=== PATIENT | male | born 1950 | race Caucasian/White ===

== ENCOUNTER 2018-06-16 05:54 | Inpatient (IN) | payer MEDICARE, SELFPAY ==
[2018-06-16 07:41] LABS: #Lymphocytes 0.5 thou/uL (1.20-3.40); #Monocytes 0.5 thou/uL (0.11-0.59); #Neutrophils 15.2 thou/uL (1.40-6.50); %Basophils 0.1 % (0.0-1.0); %Eosinophils 0.1 % (0.0-10.0); %Lymphocytes 2.8 % (21.0-51.0); %Monocytes 3.1 % (0.0-10.0); %Neutrophils 93.9 % (42.0-75.0); Hemoglobin 14.3 g/dL (14.0-18.0); Mean Corpuscular HGB CONC 35.2 g/dL (32.0-36.0); Mean Corpuscular Hemoglobin 31.5 pg (27.0-31.0); Mean Corpuscular Volume 89.6 fL (78.0-98.0); Mean Platelet Volume 7.5 fL (7.4-10.4); Platelet Count 257 thou/uL (130-400); RBC Distribution Width 11.4 % (11.5-14.5); Red Blood Cell (RBC) Count 4.54 mill/uL (4.70-6.10); White Blood Cell (WBC) Count 16.2 thou/uL (4.8-10.8)
[2018-06-16 08:07] LABS: ALT (SGPT) 85 U/L (8-55); AST (SGOT) 149 U/L (5-34); Albumin 4.2 g/dL (3.4-4.8); Alkaline Phosphatase 225 U/L (40-150); Anion Gap 18 mmol/L (10-20); BUN (Urea Nitrogen) 33 mg/dL (8.4-25.7); Bilirubin, Total 3.4 mg/dL (0.2-1.2); Calc. Creatinine Clearance 0 mL/min (70-130); Calcium 9.6 mg/dL (7.8-10.44); Carbon Dioxide 22 mmol/L (23-31); Chloride 94 mmol/L (98-107); Estimated GFR-MDRD 34; Globulin 2.9 g/dL (2.4-3.5); Glucose 447 mg/dL (80-115); Lipase 166 U/L (8-78); Potassium 4.3 mmol/L (3.5-5.1); Protein, Total 7.1 g/dL (5.8-8.1); Sodium 130 mmol/L (136-145)
--- NOTE | 2018-06-16 08:31 | RAD ---
PORTABLE CHEST: Date: 06/16/18 HISTORY: Epigastric pain, elevated liver enzymes. FINDINGS: Heart size appears borderline to slightly enlarged. There is some linear and interstitial change in t he bases consistent with atelectasis or scar. There is elevation of the right hemidiaphragm. IMPRESSION: Linear atelectasis or scar in the lung bases with minimal cardiomegaly. POS: [facility]
[2018-06-16] MEDS ORDERED: Acetaminophen 500 MG TAB ONE (09:12)
[2018-06-16] MEDS ORDERED: Piperacillin/Tazobactam 4.5 GM VIAL ONE (09:20)
[2018-06-16 09:46] LABS: Bilirubin Negative (Negative); Blood, Urine Negative (Negative); Clarity CLEAR (Clear); Glucose, Urine (Dipstick) >=1000 mg/dL (Negative); Leukocyte Negative (Negative); Nitrite Negative (Negative); Protein, Urine (Dipstick) Negative (Neg-Trace); Specific Gravity, Urine 1.026 (1.002-1.036)
[2018-06-16] MEDS ORDERED: Iothalamate Meglumine 60% 50 ML VIAL FS ONE (09:53)
[2018-06-16 10:02] LABS: PTT 23.9 SEC (22.9-36.1); Prothrombin Time 13.4 SEC (12.0-14.7)
[2018-06-16] MEDS ORDERED: Indomethacin 50 MG SUPP ONE (10:06)
--- NOTE | 2018-06-16 10:13 | CON ---
DATE OF CONSULTATION: CHIEF COMPLAINT: Epigastric abdominal pain. HISTORY: This is a 68-year-old male with a 3-4 day history of mid epigastric pain associated with nausea, no vomiting. It is progressive. He has been having low-grade fever. While in the emergency room, he spiked a temperature to 105 and became much more lethargic and became more tachycardic. PAST MEDICAL HISTORY: Significant for hypertension and diabetes. PAST SURGERIES: He has had a laminectomy. MEDICATIONS: Metformin, lisinopril, and hydrochlorothiazide. SOCIAL HISTORY: He is . No tobacco or alcohol. PHYSICAL EXAMINATION: VITAL SIGNS: Temperature 105, pulse 136, blood pressure 130/60. GENERAL: He is very lethargic, difficult to answer questions, somewhat diaphoretic. He is obese. HEENT: He has some possible trace jaundice. LUNGS: Clear. HEART: Regular rate and rhythm, but tachy. ABDOMEN: Obese, soft, tender in the epigastrium. No peritoneal signs. EXTREMITIES: Unremarkable. LABORATORY DATA: His white count is 16.2, H and H of 14 and 40, platelet count 257. Electrolytes, his creatinine is elevated at 1.96, his glucose 450, his sodium 130, his CO2 of 22, T bilirubin is 3.4, AST 149, ALT of 85, alkaline phosphatase 225, lipase 166. He had an ultrasound showing cholelithiasis. ASSESSMENT: Worrisome for acute cholangitis. PLAN: IV antibiotics, IV fluids. GI consultation for possible ERCP. When more stable, we can consider lap mj. Job ID: [id number]
[2018-06-16] MEDS ORDERED: PHENYLEPHRINE-NS 100 MCG/ML 10 ML SYRINGE ONE ×2 (10:25→13:42)
[2018-06-16] MEDS ORDERED: Fentanyl 100 MCG/2 ML VIAL ONE (10:25)
--- NOTE | 2018-06-16 10:40 | ULT ---
RIGHT UPPER QUADRANT ULTRASOUND: Date: 06/16/18 INDICATION: Elevated LFTs and epigastric abdominal pain. FINDINGS: Overlying bowel gas limits exam. There is diffuse increased echogenicity of the liver consistent with fatty infiltration. There is gallbladder sludge and stones present. No sonographic Milligan's sign rep orted. No pericholecystic fluid is evident. Common bile duct measures 4.1 mm. Pancreas is obscured. T he right kidney measures 10.7 cm in length without evidence of hydronephrosis. Incidental note is mad e of a 2.0 cm left hepatic lobe cyst. IMPRESSION: 1. Fatty liver and left hepatic lobe cyst. 2. Gallbladder sludge with stones without definite sonographic evidence of acute cholecystitis. POS: [facility]
--- NOTE | 2018-06-16 11:20 | CT ---
CT ABDOMEN AND PELVIS PERFORMED WITH IV CONTRAST ENHANCEMENT: Date: 06/16/18 HISTORY: Abdominal pain and fever. Evaluate for cholangitis. FINDINGS: The lung bases show bibasilar atelectatic change. Liver shows some fatty change. Hypodensities within the left lobe are small, but statistically most l ikely cysts. The pancreas region appears unremarkable. Small gallstones are noted. No pericholecystic inflammatory change. Gallbladder is mildly distended. No ductal dilatation. Right and left adrenal glands, and right and left kidneys are normal in size. There is no significant periaortic or mesenteric lymphadenopathy. There are very minimal diverticular changes of the colon, more pronounced in the descending and sigmoid colon region. CT of pelvis was performed with contrast enhancement. No adenopathy, mass, or free fluid. The appendi x is normal. Review of osseous structures show arthritic changes of the spine. IMPRESSION: 1. Hypodensities within the liver, statistically most likely a cyst. 2. Small gallstones. 3. Colonic diverticulosis. POS: [facility]
[2018-06-16] MEDS ORDERED: Meperidine HCl/PF 25 MG/ML VIAL SLOW IVP PRN (11:37)
[2018-06-16] MEDS ORDERED: Promethazine HCl 25 MG/ML VIAL SLOW IVP PRN (11:37)
[2018-06-16] MEDS ORDERED: Promethazine HCl 25 MG/ML VIAL IM PRN (11:37)
[2018-06-16] MEDS ORDERED: HYDROmorphone 2 MG/ML VIAL SLOW IVP PRN (11:37)
--- NOTE | 2018-06-16 11:37 | HP ---
PRIMARY CARE PHYSICIAN: Dr. Cruz in [place]. REASON FOR ADMISSION: Acute cholangitis. HISTORY OF PRESENT ILLNESS: A 68-year-old male, who has underlying history of hypertension and who was diagnosed with diabetes 3 days ago and started on metformin, who came to emergency room for evaluation of epigastric abdominal pain. Initially, he went to [facility] for right upper quadrant pain, which was started yesterday during nighttime. The patient was taken to local emergency room. He was having nausea and vomiting. On , he had scant diarrhea. At [facility], the patient was found with abnormal LFT. He was having 9/10 in intensity, predominantly in right upper quadrant and he was also found with jaundice on routine blood test. The patient was also having chills at home. He was having nausea and anorexia. This patient was transferred from [place] to our hospital. He had a CT abdomen and pelvis as well as ultrasound of gallbladder, and findings were suspicious for cholecystitis versus cholangitis. [facility] already saw this patient and they are planning to do ERCP. This patient already has received 2 L of IV fluid , and the patient also received Zosyn. The patient denies any chest pain, palpitation, shortness of breath. He denies any orthopnea, PND, or leg swelling. This patient was relatively hypotensive and tachycardic in the emergency room. He was having sepsis. The patient's family member is present at bedside. The patient denies any melena or hematochezia. No hematemesis. He denies any similar problem in the past. The patient is also complaining that right upper quadrant pain is also radiating to back. He denies any abdominal distention. REVIEW OF SYSTEMS: CONSTITUTIONAL: Negative for weight loss or gain, ability to conduct usual activities. SKIN: Negative for rash, itching. EYES: Negative for double vision, pain. ENT/MOUTH: Negative for nose bleeding, neck stiffness, pain, tenderness. CARDIOVASCULAR: Negative for palpitations, dyspnea on exertion, orthopnea. RESPIRATORY: Negative for shortness of breath, wheezing, cough, hemoptysis, fever or night sweats. GASTROINTESTINAL: Negative for poor appetite, abdominal pain, heartburn, nausea , vomiting, constipation, or diarrhea. GENITOURINARY: Negative for urgency, frequency, dysuria, nocturia. MUSCULOSKELETAL: Negative for pain, swelling. NEUROLOGIC/PSYCHIATRIC: Negative for anxiety, depression. ALLERGY/IMMUNOLOGIC: Negative for skin rash, bleeding tendency. Please see my HPI for pertinent positive and negative. All other review of systems reviewed and negative, except as mentioned in HPI. PAST MEDICAL HISTORY: New diagnosis of diabetes mellitus type 2 few days ago, hypertension, obesity. PAST SURGICAL HISTORY: Laminectomy. PAST PSYCHIATRIC HISTORY: Reviewed and negative. ALLERGIES: THE PATIENT IS NOT TOLERATING NORCO WELL. CURRENT HOME MEDICATIONS: Metformin 500 mg twice daily, lisinopril with hydrochlorothiazide 10/12.5 one tablet daily. SOCIAL HISTORY: Patient is , no history of tobacco, alcohol or drug abuse. FAMILY HISTORY: No family history of coronary artery disease, stroke, or cancer. EMERGENCY ROOM COURSE: The patient has received IV fluid, Zosyn, Ofirmev. ADDITIONAL INFORMATION: The patient was initially afebrile at [facility], but subsequently he spiked fever in our emergency room with a temperature 105.5 , and he became tachycardic and hypotensive. PHYSICAL EXAMINATION: VITAL SIGNS: T-maximum 105.5 rectally, pulse 137, blood pressure 96/52, saturation 95% on room air, weight 99.8 kg. GENERAL: The patient is currently alert, awake. No obvious acute distress. HEENT: Head; normocephalic, atraumatic. Eyes; pupils round and reactive to light. Extraocular muscles intact. ENT; oropharynx within normal limit. Moist mucous membranes. No oral lesion. No pharyngeal erythema. No exudate. NECK: Supple. No JVD. No thyromegaly. No carotid bruit. No jugular venous distention. LUNGS: Clear to auscultation without any rhonchi or rales. Air entry reduced at bases. CARDIAC: S1, S2 regular. Tachycardia. No murmur. No gallop. No rub. ABDOMEN: The patient does have right upper quadrant tenderness. No suprapubic tenderness. Bowel sounds present. No organomegaly. No mass. No distention. BACK: Unremarkable. No CVA tenderness. EXTREMITIES: Upper extremities; passive movement of all joints are normal. Lower extremity, no edema. Good distal pulsation. SKIN: No skin rash. HEMATOLOGICAL: No lymphadenopathy. NEUROLOGIC: Nonfocal examination. SIGNIFICANT LABORATORY DATA: EKG showing sinus tachycardia, initially an incomplete right bundle-branch block. Subsequently, repeat EKG is showing incomplete right bundle-branch block, left anterior fascicular block. CBC; WBC 16.2, hemoglobin 14.3, platelets 257, with left shift. INR 1.0. BMP; sodium 130, potassium 4.3, chloride 94, carbon dioxide 22, anion gap 18, BUN 33, creatinine 1.96, glucose 447, calcium 9.6, lactic acid 3.9. LFT; bilirubin 3.4, AST 149, ALT 85, alkaline phosphatase 225, albumin 4.2, lipase 166. Troponin 0.010. Urinalysis, glucosuria, ketonuria. Influenza A and B negative. Ultrasound showing fatty liver, left hepatic cyst, gallbladder sludge. Chest x- ray showing atelectasis. CT abdomen and pelvis done, but official report is pending by the time of dictation. ASSESSMENT AND PLAN: 1. Acute cholangitis. This patient has right upper quadrant abdominal pain, high-grade fever, chills, along with the jaundice on lab testing with abnormal LFT consistent with acute cholangitis. [facility] has been consulted, and they already evaluated this patient, and the patient is planned for emergent ERCP. The patient already received broad-spectrum antibiotic therapy with Zosyn and he has received IV fluid. We will monitor his vitals and hemodynamics and labs. General Surgery will be consulted as well. This patient has gallbladder sludge and that he may need a near future cholecystectomy. The patient's pain will be controlled with the pain medication with morphine p.r.n. basis after procedure. 2. Severe sepsis with hypotension and acute organ dysfunction. This patient has acute kidney failure, abnormal LFT, lactic acidosis, hypotension. Source of infection is cholecystitis versus cholangitis. The patient is on broad-spectrum antibiotic therapy with Zosyn, and we will also add levofloxacin. We will give him enough fluid as well. We will monitor closely either on telemetry floor or IMCU depending upon his next few hours hemodynamic stability. 3. Acute kidney failure. The patient will be given IV fluid and will repeat BMP tomorrow. We will avoid nephrotoxin agent. 4. Hyperglycemia associated with diabetes type 2. This is new onset diabetes. We will check a serum ketones. We will continue with aggressive scale insulin as well as we will start Levemir 10 units subcu b.i.d. We will check hemoglobin A1c and lipid profile tomorrow. 5. Lactic acidosis due to sepsis. We will repeat lactic acid level later on today and tomorrow. 6. Hyponatremia. May be related with pseudohyponatremia versus dehydration. The patient will be given IV fluid and will repeat BMP tomorrow. 7. Abnormal liver function test related with cholangitis and cholecystitis. We will repeat LFT tomorrow. 8. Elevated lipase. The patient might have early pancreatitis. We will repeat lipase tomorrow. 9. Hypertension. Currently, low blood pressure and that is why we will hold on antihypertensive medication. 10. Deep venous thrombosis prophylaxis. Lovenox 40 mg subcu daily. 11. Gastrointestinal prophylaxis. Protonix 40 mg IV daily. CODE STATUS: The patient is full code. The patient's is surrogate decision maker. DISPOSITION PLAN: Based on clinical course, we are expecting the patient's stay in hospital more than 2 midnights. Plan of care discussed with the patient and his at bedside. The patient is also advised to use incentive spirometry while in hospital as instructed. Job ID: [id number] MTDD
[2018-06-16] MEDS ORDERED: Insulin Regular 300 UNITS/3 ML VIAL IVP SCH (11:45)
[2018-06-16] MEDS ORDERED: Insulin Regular 300 UNITS/3 ML VIAL ONE (11:53)
--- NOTE | 2018-06-16 12:06 | RAD ---
SINGLE RADIOGRAPHIC IMAGE FROM ERCP: Date: 06/16/18 INDICATION: Evaluate for choledocholithiasis. COMPARISON: CT of the abdomen and pelvis dated 06/16/08. FINDINGS: Submitted image demonstrates canalization of the common bile duct. A small suspected focal filling de fect within the lower CBD likely related to balloon. There is retrograde opacification of the common bile duct. The visualized opacified segments demonstrate no intraluminal filling defect. IMPRESSION: No definite intraluminal filling defect evident on this single ERCP image. POS: [facility]
[2018-06-16] MEDS ORDERED: Ondansetron ODT 4 MG TAB SL PRN (13:33)
[2018-06-16] MEDS ORDERED: Acetaminophen 325 MG TAB PO PRN (13:33)
[2018-06-16] MEDS ORDERED: Ondansetron PF 4 MG/2 ML Vial IVP PRN ×2 (13:33→13:35)
[2018-06-16] MEDS ORDERED: Sodium Chloride 0.65% Nasal 44 ML BOT EA NARE PRN (13:35)
[2018-06-16] MEDS ORDERED: Dextrose 5% in Water 1,000 ML IV PRN (13:35)
[2018-06-16] MEDS ORDERED: Senokot S 8.6-50 MG TAB PO PRN (13:35)
[2018-06-16] MEDS ORDERED: Ondansetron ODT 4 MG TAB PO PRN (13:35)
[2018-06-16] MEDS ORDERED: hydrALAZINE 20 MG/ML VIAL SLOW IVP PRN (13:35)
[2018-06-16] MEDS ORDERED: Diabetic Tussin 200 MG/10 ML UDCUP PO PRN (13:35)
[2018-06-16] MEDS ORDERED: Dextrose 50% Abboject 50 ML SYRINGE SLOW IVP PRN (13:35)
[2018-06-16] MEDS ORDERED: Artificial Tears 18 DROP/0.9 ML EA EYE PRN (13:35)
[2018-06-16] MEDS ORDERED: Loperamide HCl 2 MG CAP PO PRN (13:35)
[2018-06-16] MEDS ORDERED: Cepastat Lozenges 1 LOZ PO PRN (13:35)
[2018-06-16] MEDS ORDERED: Calcium Carbonate 500 MG ChewTAB PO PRN (13:35)
[2018-06-16] MEDS ORDERED: Zolpidem Tartrate 5 MG TAB PO PRN (13:35)
[2018-06-16] MEDS ORDERED: Bisacodyl 5 MG TAB PO PRN (13:35)
[2018-06-16] MEDS ORDERED: Eucerin (Mineral Oil/Petrolatum,White) 30 gm Jar TOP PRN (13:35)
[2018-06-16] MEDS ORDERED: Bisacodyl 10 MG SUPP PR PRN (13:35)
[2018-06-16] MEDS ORDERED: Loratadine 10 MG TAB PO PRN (13:35)
[2018-06-16] MEDS ORDERED: Ondansetron PF 4 MG/2 ML Vial ONE (13:42)
[2018-06-16] MEDS ORDERED: Glycopyrrolate 0.2 MG/ML 5 ML SYRINGE ONE (13:42)
[2018-06-16] MEDS ORDERED: Lidocaine 1% PF 5 ML VIAL ONE (13:42)
[2018-06-16] MEDS ORDERED: Rocuronium Bromide 10 MG/ML (10ML VIAL) ONE (13:42)
[2018-06-16] MEDS ORDERED: Succinylcholine Chloride 20 MG/ML 10 ml SYRINGE FS ONE (13:42)
[2018-06-16] MEDS ORDERED: PROPOFOL 200 MG/20 ML VIAL ONE (13:42)
[2018-06-16 14:01] LABS: Lactic Acid 3.3 mmol/L (0.5-2.2)
[2018-06-16] MEDS ORDERED: Morphine 2 MG/ML SYRINGE SLOW IVP PRN (14:20)
--- NOTE | 2018-06-16 15:29 | CON ---
DATE OF CONSULTATION: REASON FOR CONSULT: Suspected cholangitis. HISTORY OF PRESENT ILLNESS: Mr. Zayas is a 68-year-old gentleman who was transferred to this hospital from [facility] where he presented early this morning with right upper quadrant epigastric pain, nausea, fever, tachycardia, and a temperature of 105. [place] [address] with a platelet count of 257. Creatinine of 1.9, glucose of 450, bilirubin of 3.4, AST of 149, ALT of 85, and alkaline phosphatase of 225. His lipase is 106. Ultrasound showed cholelithiasis and possible prominent common bile duct. CAT scan here showed a 7 mm common hepatic duct gallstones. No signs of gallbladder wall thickening. He began to be tachycardic and hypotensive. Dr. Encarnacion was called for possible lap mj, but he was concerned about ERCP for acute cholangitis and early sepsis and called me. The patient notes he has been recently diagnosed with diabetes. Last week, he started metformin, had a little bit of diarrhea and thought that was a side effect of the medicine, but yesterday began having epigastric and right upper quadrant back pain. This worsened overnight where he ultimately with the emergency room. PAST MEDICAL HISTORY: Hypertension, new onset diabetes. PAST SURGICAL HISTORY: Orchiectomy and laminectomy. MEDICATIONS: Metformin, lisinopril, and hydrochlorothiazide. SOCIAL HISTORY: He is . His is at the bedside. He does not smoke, drink, or use drugs. PHYSICAL EXAMINATION: VITAL SIGNS: Pulse is 130, blood pressure 100/40s, temperature 105. GENERAL: The patient is somewhat diaphoretic. He is icteric. LUNGS: Clear. HEART: Sinus tachycardia. ABDOMEN: Tender in the right upper quadrant with no rebound or guarding. EXTREMITIES: Reveal no clubbing, cyanosis, or edema. LABORATORY DATA: Laboratory studies as per HPI. IMAGING DATA: Imaging films reviewed with Radiology and the patient. ASSESSMENT: 1. Right upper quadrant pain, fever, elevated liver enzymes, and gallstones. This is likely ascending cholangitis. He has a lactic acid of 3.9. 2. New onset diabetes. 3. No signs of pancreatitis on imaging studies. RECOMMENDATIONS: 1. Aggressive fluid resuscitation. He has 2 L going presently. He is on antibiotics. He is started on Zosyn. 2. Urgent ERCP for drainage of biliary tree. Job ID: [id number]
[2018-06-16] MEDS: Piperacillin/Tazobactam 3.375 GM in Sodium Chloride 0.9% 100 ML IVPB SCH ×2 (16:11→21:04)
[2018-06-16] MEDS ORDERED: ISOVUE-370 76%-LOCM 1 ML ONE (16:34)
[2018-06-16 16:43] VITALS: BMI 26.4
--- NOTE | 2018-06-16 18:22 | OP ---
DATE OF PROCEDURE: 06/16/2018 PREPROCEDURE DIAGNOSIS: Suspected ascending cholangitis. POSTPROCEDURE DIAGNOSES: Ascending cholangitis and choledocholithiasis. PROCEDURES: ERCP, sphincterotomy, removal of common bile duct stone. ANESTHESIA: General endotracheal anesthesia. The patient received Indocin two suppositories and IV fluids to avoid and reduce risk of post-ERCP pancreatitis. RECOMMENDATIONS: 1. Continue IV Zosyn. 2. Clear liquids. 3. Consider cholecystectomy in 24-48 hours. ANESTHESIA: TIVA. PROCEDURE IN DETAIL: The patient was informed of the risks, benefits, and possible complications of endoscopy including perforation, reaction to medication, and aspiration. Informed consent was obtained. The patient was brought to the endoscopy suite where he was sedated in gradual fashion. Once he was comfortable, intubated, bite block was placed into his oropharynx. The endoscope was advanced to the esophagus, stomach, and second and third portion of the duodenum, and slowly removed. The ampulla was brought into view. There was food in this area. It has to be irrigated away and then the ampulla could be seen. There was a stone impacted at the ampulla. Photo documentation was obtained. Free cannulation was obtained. A sphincterotomy was performed over a guidewire and then dark bile was noted to be emanating with wisps of pus. The duct was swept three times. No further stones seen. The sphincterotomy was suitable to pass a 15 mm balloon. The gallbladder did fill at the conclusion procedure after radiographic and photo documentation was obtained, the stomach and small bowel were desufflated. The patient extubated, and brought to recovery room in stable condition. Job ID: [id number]
[2018-06-16] MEDS: Sodium Chloride 0.9% 1,000 ML IV SCH ×2 (20:14→21:49)
[2018-06-16] MEDS ORDERED: Insulin Regular 300 UNITS/3 ML VIAL SC SCH (21:00)
[2018-06-16] MEDS: Insulin Glargine 6 UNITS in Pre-Filled Syringe 1 EACH SC SCH (21:05)
[2018-06-16] MEDS ORDERED: Clopidogrel Bisulfate 75 MG TAB ONE (22:01)
[2018-06-17] MEDS: Sodium Chloride 0.9% 1,000 ML IV SCH ×3 (04:01→16:25)
[2018-06-17] MEDS: Piperacillin/Tazobactam 3.375 GM in Sodium Chloride 0.9% 100 ML IVPB SCH ×4 (04:09→21:51)
[2018-06-17 05:51] LABS: Hemoglobin A1c 11.9 % (4.0-6.0)
[2018-06-17 05:54] LABS: #Eosinphils 0.1 thou/uL (0.0-0.7); #Lymphocytes 0.4 thou/uL (1.20-3.40); #Monocytes 0.7 thou/uL (0.11-0.59); #Neutrophils 9.6 thou/uL (1.40-6.50); %Basophils 0.1 % (0.0-1.0); %Monocytes 6.1 % (0.0-10.0); %Neutrophils 88.8 % (42.0-75.0); Hemoglobin 12.6 g/dL (14.0-18.0); Mean Corpuscular HGB CONC 33.6 g/dL (32.0-36.0); Mean Corpuscular Hemoglobin 32.1 pg (27.0-31.0); Mean Corpuscular Volume 95.5 fL (78.0-98.0); Mean Platelet Volume 7.9 fL (7.4-10.4); Platelet Count 181 thou/uL (130-400); RBC Distribution Width 11.9 % (11.5-14.5); Red Blood Cell (RBC) Count 3.92 mill/uL (4.70-6.10); White Blood Cell (WBC) Count 10.8 thou/uL (4.8-10.8)
[2018-06-17 06:07] LABS: Lactic Acid 1.5 mmol/L (0.5-2.2)
[2018-06-17 06:30] LABS: ALT (SGPT) 91 U/L (8-55); AST (SGOT) 78 U/L (5-34); Albumin 3.2 g/dL (3.4-4.8); Alkaline Phosphatase 137 U/L (40-150); Anion Gap 14 mmol/L (10-20); BUN (Urea Nitrogen) 28 mg/dL (8.4-25.7); Bilirubin, Total 1.7 mg/dL (0.2-1.2); Calc. Creatinine Clearance 58 mL/min (70-130); Carbon Dioxide 18 mmol/L (23-31); Cardiac Risk 3.3 (Less than 4.5); Chloride 103 mmol/L (98-107); Cholesterol 91 mg/dl (< 200 Desired); Estimated GFR-MDRD 40; Globulin 2.3 g/dL (2.4-3.5); Glucose 221 mg/dL (80-115); HDL Cholesterol 28 mg/dL (>60 Neg Risk); LDL Cholesterol, Calculated 13 mg/dL; Lipase 69 U/L (8-78); Potassium 3.7 mmol/L (3.5-5.1); Protein, Total 5.5 g/dL (5.8-8.1); Sodium 131 mmol/L (136-145); Triglycerides 252 mg/dL (Less than 150)
[2018-06-17] MEDS: Enoxaparin Sodium 40 MG/0.4 ML SYRINGE SC SCH (08:17)
[2018-06-17] MEDS: Insulin Glargine 6 UNITS in Pre-Filled Syringe 1 EACH SC SCH ×2 (08:17→21:52)
[2018-06-17] MEDS: Saccharomyces boulardii 250 MG CAP PO SCH (08:17)
[2018-06-17] MEDS: Pantoprazole 40 MG VIAL IVP SCH (09:18)
--- NOTE | 2018-06-17 10:52 | PDOC.PN ---
- Subjective Encounter Start Date: 06/17/18 Encounter Start Time: 08:15 Patient seen and examined. No new complaints. No overnight events - Objective Resuscitation Status - Order Detail: 06/16/18 10:55 Resuscitation Status Routine Resuscitation Status: FULL: Full Resuscitation MAR Reviewed: Yes Vital Signs & Weight: Vital Signs (12 hours) Temp Pulse Resp BP Pulse Ox 06/17/18 09:00 95 06/17/18 08:00 97.8 F 97 20 130/64 95 06/17/18 03:46 97.5 F L 92 16 143/67 H 9 L 06/17/18 00:45 97.9 F 90 13 113/60 96 Weight Weight 217 lb 4.8 oz Result Diagrams: 06/17/18 04:56 06/17/18 04:56 Additional Labs: Accuchecks 06/17/18 06/17/18 06/16/18 05:59 00:09 20:25 POC Glucose 236 H 247 H 469 H 06/16/18 06/16/18 06/16/18 17:03 12:48 11:38 POC Glucose 281 H 334 H 341 H EKG Reviewed by me: Yes (nsr) Phys Exam - Physical Examination Constitutional: NAD HEENT: PERRLA, moist MMs, sclera anicteric Neck: no JVD, supple Respiratory: no wheezing, no rales, no rhonchi Cardiovascular: RRR, no significant murmur, no rub Gastrointestinal: soft, non-tender, no distention, positive bowel sounds Musculoskeletal: no edema, pulses present Neurological: non-focal, normal sensation, moves all 4 limbs Psychiatric: normal affect, A&O x 3 Skin: no rash, normal turgor Dx/Plan (1) Abnormal LFTs Code(s): R94.5 - ABNORMAL RESULTS OF LIVER FUNCTION STUDIES Status: Acute (2) Acute kidney failure Status: Acute (3) Bacteremia Code(s): R78.81 - BACTEREMIA Status: Acute (4) Cholelithiasis with acute cholangitis Code(s): K80.20 - CALCULUS OF GALLBLADDER W/O CHOLECYSTITIS W/O OBSTRUCTION; K83.09 - OTHER CHOLANGITIS Status: Acute (5) Hyponatremia Code(s): E87.1 - HYPO-OSMOLALITY AND HYPONATREMIA Status: Acute (6) Sepsis with acute organ dysfunction Code(s): A41.9 - SEPSIS, UNSPECIFIED ORGANISM; R65.20 - SEVERE SEPSIS WITHOUT SEPTIC SHOCK Status: Acute (7) Diabetes type 2, controlled Code(s): E11.9 - TYPE 2 DIABETES MELLITUS WITHOUT COMPLICATIONS Status: Chronic (8) Hypertension Code(s): I10 - ESSENTIAL (PRIMARY) HYPERTENSION Status: Chronic - Plan cont current plan of care, continue antibiotics * medication reviewed as below * symptomatic treatment * today lap mj * follow culture * continue IV zosyn. Review of Systems - Review of Systems ENT: negative: Ear Pain, Ear Discharge, Nose Pain, Nose Discharge, Nose Congestion, Mouth Pain, Mouth Swelling, Throat Pain, Throat Swelling, Other Respiratory: negative: Cough, Dry, Shortness of Breath, Hemoptysis, SOB with Excertion, Pleuritic Pain, Sputum, Wheezing Cardiovascular: negative: chest pain, palpitations, orthopnea, paroxysmal nocturnal dyspnea, edema, light headedness, other Gastrointestinal: negative: Nausea, Vomiting, Abdominal Pain, Diarrhea, Constipation, Melena, Hematochezia, Other Genitourinary: negative: Dysuria, Frequency, Incontinence, Hematuria, Retention , Other Musculoskeletal: negative: Neck Pain, Shoulder Pain, Arm Pain, Back Pain, Hand Pain, Leg Pain, Foot Pain, Other Skin: negative: Rash, Lesions, Addison, Bruising, Other - Medications/Allergies Allergies/Adverse Reactions: Allergies Allergy/AdvReac Type Severity Reaction Status Date / Time No Known Drug Allergies Allergy Verified 06/16/18 12:23 Medications: Current Medications Acetaminophen (Tylenol) 650 mg PO Q4H PRN PRN Reason: Headache/Fever/Mild Pain (1-3) Albuterol/Ipratropium (Duoneb) 3 ml NEB [id number] PRN PRN Reason: SOB &/or Wheezing Artificial Tears (Tears Naturale) 2 drop EA EYE PRN PRN PRN Reason: Dry Eyes Bisacodyl (Dulcolax) 10 mg PO DAILYPRN PRN PRN Reason: Constipation Bisacodyl (Dulcolax) 10 mg MI DAILYPRN PRN PRN Reason: Constipation Calcium Carbonate (Tums) 1,000 mg PO Q4H PRN PRN Reason: Heartburn or Indigestion Dextrose/Water (Dextrose 50%) 25 gm SLOW IVP PRN PRN PRN Reason: Hypoglycemia Enoxaparin Sodium (Lovenox) 40 mg SC 0900 [facility] Last Admin: 06/17/18 08:17 Dose: Not Given Glucagon (Glucagon) 1 mg IM PRN PRN PRN Reason: Hypoglycemia Guaifenesin (Robitussin Sf) 200 mg PO Q4H PRN PRN Reason: Cough Hydralazine HCl (Apresoline) 10 mg SLOW IVP Q4H PRN PRN Reason: SBP > 180 and HR < 70 Levofloxacin 750 mg/ Device 150 mls @ 100 mls/hr IVPB Q2DAYS [facility] Last Admin: 06/16/18 17:36 Dose: 150 mls Piperacillin Sod/Tazobactam (Sod 3.375 gm/ Sodium Chloride) 100 mls @ 200 mls/ hr IVPB Q6H [facility] Last Admin: 06/17/18 09:17 Dose: 100 mls Dextrose/Water (D5w) 1,000 mls @ 0 mls/hr IV .Q0M PRN PRN Reason: Hypoglycemia Insulin Glargine 6 units/ (Miscellaneous Medication) 0.06 mls @ 0 mls/hr SC HS [facility] Last Admin: 06/16/18 21:05 Dose: 0.06 mls Insulin Glargine 6 units/ (Miscellaneous Medication) 0.06 mls @ 0 mls/hr SC QAM [facility] Last Admin: 06/17/18 08:17 Dose: Not Given Sodium Chloride (Normal Saline 0.9%) 1,000 mls @ 75 mls/hr IV .[id number] [facility] Last Admin: 06/17/18 08:45 Dose: 1,000 mls Insulin Human Lispro (Humalog) 0 units SC .AGGRESSIVE SLIDING PRN PRN Reason: Aggressive Correctional Scale Insulin Human Lispro (Humalog) 0 units SC .BEDTIME SLIDING SC PRN PRN Reason: Bedtime Correctional Scale Loperamide HCl (Imodium) 2 mg PO PRN PRN PRN Reason: Diarrhea/Loose Stools Loratadine (Claritin) 10 mg PO DAILYPRN PRN PRN Reason: Sinus Symptoms Mineral Oil/White Petrolatum (Eucerin Cream) 0 gm TOP BIDPRN PRN PRN Reason: Dry Skin Morphine Sulfate (Morphine) 2 mg SLOW IVP Q4H PRN PRN Reason: Pain Ondansetron HCl (Zofran Odt) 4 mg PO Q6H PRN PRN Reason: Nausea/Vomiting Ondansetron HCl (Zofran) 4 mg IVP Q6H PRN PRN Reason: Nausea/Vomiting Pantoprazole Sodium (Protonix) 40 mg IVP DAILY [facility] Last Admin: 06/17/18 09:18 Dose: 40 mg Saccharomyces Boulardii (Florastor) 250 mg PO DAILY [facility] Last Admin: 06/17/18 08:17 Dose: Not Given Senna/Docusate Sodium (Senokot S) 2 tab PO BID PRN PRN Reason: Constipation Sodium Chloride ([place] Nasal [place] 0.65%) 0 ml EA NARE QIDPRN PRN PRN Reason: Nasal Congestion Sodium Chloride (Flush - Normal Saline) 10 ml IVF Q12HR [facility] Last Admin: 06/17/18 09:20 Dose: 10 ml Sodium Chloride (Flush - Normal Saline) 10 ml IVF PRN PRN PRN Reason: Saline Flush Throat Lozenges (Cepastat Lozenges) 1 pedro PO Q2H PRN PRN Reason: Sore Throat Zolpidem Tartrate (Ambien) 5 mg PO HSPRN PRN PRN Reason: Insomnia
[2018-06-17] MEDS ORDERED: Fentanyl 100 MCG/2 ML VIAL ONE (11:12)
[2018-06-17] MEDS ORDERED: Bupivacaine HCl 0.5%/Epinephrine 1:200,000/PF 30 ml Vial ONE (11:28)
[2018-06-17] MEDS ORDERED: Morphine 2 MG/ML SYRINGE SLOW IVP PRN (12:37)
[2018-06-17] MEDS ORDERED: Mag-Al 1200 mg/1200 mg/30 ML UDCUP PO PRN (12:37)
[2018-06-17] MEDS ORDERED: Dextrose 5% in Water 1,000 ML IV PRN (12:37)
[2018-06-17] MEDS ORDERED: HYDROcodone/Acetaminophen 10/325 mg Tablet PO PRN (12:37)
[2018-06-17] MEDS ORDERED: Promethazine HCl 25 MG/ML VIAL IM PRN ×2 (12:37→12:47)
[2018-06-17] MEDS ORDERED: Calcium Carbonate 500 MG ChewTAB PO PRN (12:37)
[2018-06-17] MEDS ORDERED: Dextrose 50% Abboject 50 ML SYRINGE SLOW IVP PRN (12:37)
[2018-06-17] MEDS ORDERED: Morphine 4 MG/ML VIAL SLOW IVP PRN (12:37)
[2018-06-17] MEDS ORDERED: Ondansetron PF 4 MG/2 ML Vial IVP PRN (12:37)
[2018-06-17] MEDS ORDERED: hydrALAZINE 20 MG/ML VIAL SLOW IVP PRN (12:37)
[2018-06-17] MEDS ORDERED: Promethazine HCl 25 MG/ML VIAL SLOW IVP PRN (12:47)
[2018-06-17] MEDS ORDERED: Ondansetron HCl/PF 4 MG/2 ML Vial IVP PRN (12:47)
[2018-06-17] MEDS ORDERED: PACU-Morphine 4MG/ML VIAL SLOW IVP PRN (12:47)
[2018-06-17] MEDS ORDERED: Ondansetron PF 4 MG/2 ML Vial ONE (14:29)
[2018-06-17] MEDS ORDERED: Glycopyrrolate 0.2 MG/ML 5 ML SYRINGE ONE (14:29)
[2018-06-17] MEDS ORDERED: Lidocaine 1% PF 5 ML VIAL ONE (14:29)
[2018-06-17] MEDS ORDERED: PROPOFOL 200 MG/20 ML VIAL ONE (14:29)
[2018-06-17] MEDS ORDERED: Rocuronium Bromide 10 MG/ML (10ML VIAL) ONE (14:29)
[2018-06-17] MEDS ORDERED: Ketorolac Tromethamine 30 MG/ML VIAL ONE (14:29)
[2018-06-17] MEDS: HYDROcodone/Acetaminophen 10/325 mg Tablet PO PRN (16:20)
--- NOTE | 2018-06-17 17:09 | PRG ---
DATE OF SERVICE: 06/17/2018 SUBJECTIVE: Mr. Zayas is back from his cholecystectomy, still having some pain in the right upper quadrant. After his ERCP yesterday, he had no further fever. He had been as high as 105 in the emergency room. His pulse came down to 97. Today, his blood pressure is 130/64. OBJECTIVE: GENERAL: He is alert and oriented. ABDOMEN: Mildly tender from incisions, but there is no rebound or guarding. There is no hematoma at the incision sites. LUNGS: Clear. HEART: Regular rhythm. LABORATORY STUDIES: White count is down to 10.8 today, hemoglobin is 12.6, platelet count is 181, bilirubin is down to 1.7 from 3.4. AST is 78 from 149. ALT is 91 from 85. Alkaline phosphatase is 137 from 225. Lipase is 69, glucose is 250. Blood cultures are positive for Klebsiella. ASSESSMENT: 1. Ascending cholangitis, resolving after endoscopic retrograde cholangiopancreatography and removal of biliary obstruction from common bile duct stone. 2. Cholelithiasis. He may have had some chronic cholecystitis as well. He underwent a cholecystectomy today and has done well. RECOMMENDATIONS: Continue antibiotics. Await sensitivity on his cultures, does show resistant Klebsiella, he may need more than the Levaquin he is on. Advance diet as tolerated. We will follow along with you. Job ID: [id number]
[2018-06-17] MEDS: Ketorolac Tromethamine 30 MG/ML VIAL IVP SCH (17:24)
[2018-06-17] MEDS: HumaLOG 300 UNITS/3 ML VIAL SC PRN (17:28)
[2018-06-17] MEDS: Famotidine/PF 20 mg/2ml Vial SLOW IVP SCH (21:50)
[2018-06-17] MEDS: Famotidine 20 MG TAB PO SCH (21:51)
[2018-06-18] MEDS: Ketorolac Tromethamine 30 MG/ML VIAL IVP SCH ×4 (00:44→17:31)
[2018-06-18] MEDS: Piperacillin/Tazobactam 3.375 GM in Sodium Chloride 0.9% 100 ML IVPB SCH ×4 (04:24→22:07)
[2018-06-18] MEDS: HumaLOG 300 UNITS/3 ML VIAL SC PRN ×4 (05:11→22:08)
[2018-06-18 06:55] LABS: #Eosinphils 0.2 thou/uL (0.0-0.7); #Lymphocytes 0.6 thou/uL (1.20-3.40); #Monocytes 0.6 thou/uL (0.11-0.59); #Neutrophils 6.6 thou/uL (1.40-6.50); %Eosinophils 1.9 % (0.0-10.0); %Lymphocytes 7.3 % (21.0-51.0); %Monocytes 7.4 % (0.0-10.0); %Neutrophils 83.4 % (42.0-75.0); Hemoglobin 11.1 g/dL (14.0-18.0); Mean Corpuscular HGB CONC 34.3 g/dL (32.0-36.0); Mean Corpuscular Hemoglobin 32.2 pg (27.0-31.0); Mean Corpuscular Volume 93.8 fL (78.0-98.0); Mean Platelet Volume 7.5 fL (7.4-10.4); Platelet Count 155 thou/uL (130-400); RBC Distribution Width 11.6 % (11.5-14.5); Red Blood Cell (RBC) Count 3.45 mill/uL (4.70-6.10); White Blood Cell (WBC) Count 7.9 thou/uL (4.8-10.8)
[2018-06-18 07:17] LABS: ALT (SGPT) 80 U/L (8-55); AST (SGOT) 65 U/L (5-34); Albumin 2.8 g/dL (3.4-4.8); Alkaline Phosphatase 127 U/L (40-150); Anion Gap 12 mmol/L (10-20); BUN (Urea Nitrogen) 25 mg/dL (8.4-25.7); Bilirubin, Total 1.3 mg/dL (0.2-1.2); Calc. Creatinine Clearance 60 mL/min (70-130); Calcium 7.7 mg/dL (7.8-10.44); Carbon Dioxide 18 mmol/L (23-31); Chloride 103 mmol/L (98-107); Estimated GFR-MDRD 41; Globulin 2.3 g/dL (2.4-3.5); Glucose 237 mg/dL (80-115); Lipase 34 U/L (8-78); Potassium 3.7 mmol/L (3.5-5.1); Protein, Total 5.1 g/dL (5.8-8.1); Sodium 129 mmol/L (136-145)
[2018-06-18] MEDS: Enoxaparin Sodium 40 MG/0.4 ML SYRINGE SC SCH (08:19)
[2018-06-18] MEDS: Saccharomyces boulardii 250 MG CAP PO SCH (08:20)
[2018-06-18] MEDS: Pantoprazole 40 MG VIAL IVP SCH (08:20)
[2018-06-18] MEDS: Insulin Glargine 6 UNITS in Pre-Filled Syringe 1 EACH SC SCH ×2 (08:22→21:57)
[2018-06-18] MEDS: Famotidine 20 MG TAB PO SCH ×2 (08:22→20:42)
[2018-06-18] MEDS: Famotidine/PF 20 mg/2ml Vial SLOW IVP SCH ×2 (08:23→21:19)
[2018-06-18] MEDS: HYDROcodone/Acetaminophen 10/325 mg Tablet PO PRN ×2 (08:48→16:28)
--- NOTE | 2018-06-18 09:49 | PRG ---
DATE OF SERVICE: 06/18/2018 SUBJECTIVE: The patient is status post laparoscopic cholecystectomy yesterday after having cholangitis and an ERCP with stone extraction. He says he is feeling much better, but he is still pretty sore in the right upper quadrant, having some shoulder pain. He is tolerating liquids. No nausea or vomiting. OBJECTIVE: VITAL SIGNS: Temperature 98.2, pulse 81, blood pressure 123/76. GENERAL: He is awake. He is reading the newspaper. HEENT: No jaundice. LUNGS: Clear. HEART: Regular rate and rhythm. ABDOMEN: There is a little bit redness around the wound, but they look okay. No drainage. No distention. LABORATORY DATA: His white count is 7.9, H and H are 11 and 32, platelet count 155. his total bilirubin is 1.3, AST is 65, ALT of 80, his lipase is 34. ASSESSMENT: Acute cholecystitis. PLAN: Continue antibiotics, ambulation. Job ID: [id number]
[2018-06-18] MEDS: Sodium Chloride 0.9% 1,000 ML IV SCH (11:28)
--- NOTE | 2018-06-18 11:44 | PDOC.PN ---
- Subjective Encounter Start Date: 06/18/18 Encounter Start Time: 08:40 Patient seen and examined. No new complaints. No overnight events - Objective Resuscitation Status - Order Detail: 06/16/18 10:55 Resuscitation Status Routine Resuscitation Status: FULL: Full Resuscitation MAR Reviewed: Yes Vital Signs & Weight: Vital Signs (12 hours) Temp Pulse Resp BP Pulse Ox 06/18/18 11:31 97.7 F 85 14 122/72 93 L 06/18/18 07:31 95 06/18/18 07:27 98.2 F 81 14 123/76 95 06/18/18 04:00 97.6 F 90 20 122/72 95 06/18/18 00:40 98.1 F 95 18 116/66 95 Weight Weight 217 lb 4.8 oz I&O: 06/17/18 06/18/18 06/19/18 06:59 06:59 06:59 Intake Total 1700 Output Total 200 Balance 1500 Result Diagrams: 06/18/18 06:32 06/18/18 06:32 Additional Labs: Accuchecks 06/18/18 06/18/18 06/17/18 11:27 05:08 21:50 POC Glucose 296 H 277 H 251 H 06/17/18 16:00 POC Glucose 250 H Phys Exam - Physical Examination Constitutional: NAD HEENT: PERRLA, moist MMs, sclera anicteric Neck: no JVD, supple Respiratory: no wheezing, no rales, no rhonchi Cardiovascular: RRR, no significant murmur, no rub Gastrointestinal: soft, non-tender, no distention, positive bowel sounds surgical site clean Musculoskeletal: no edema, pulses present Neurological: non-focal, normal sensation, moves all 4 limbs Lymphatic: no nodes Psychiatric: normal affect, A&O x 3 Skin: no rash, normal turgor Dx/Plan (1) Cholelithiasis with acute cholangitis Code(s): K80.20 - CALCULUS OF GALLBLADDER W/O CHOLECYSTITIS W/O OBSTRUCTION; K83.09 - OTHER CHOLANGITIS Status: Acute Comment: s/p ERCP and s/p lap mj (2) Abnormal LFTs Code(s): R94.5 - ABNORMAL RESULTS OF LIVER FUNCTION STUDIES Status: Acute (3) Acute kidney failure Status: Resolved (4) Bacteremia Code(s): R78.81 - BACTEREMIA Status: Resolved (5) Hyponatremia Code(s): E87.1 - HYPO-OSMOLALITY AND HYPONATREMIA Status: Acute (6) Sepsis with acute organ dysfunction Code(s): A41.9 - SEPSIS, UNSPECIFIED ORGANISM; R65.20 - SEVERE SEPSIS WITHOUT SEPTIC SHOCK Status: Acute (7) Diabetes type 2, controlled Code(s): E11.9 - TYPE 2 DIABETES MELLITUS WITHOUT COMPLICATIONS Status: Chronic (8) Hypertension Code(s): I10 - ESSENTIAL (PRIMARY) HYPERTENSION Status: Chronic (9) BPH with obstruction/lower urinary tract symptoms Code(s): N40.1 - BENIGN PROSTATIC HYPERPLASIA WITH LOWER URINARY TRACT SYMP; N13.8 - OTHER OBSTRUCTIVE AND REFLUX UROPATHY Status: Acute - Plan cont current plan of care, continue antibiotics * medication reviewed as below * symptomatic treatment * continue zosyn and levaquin * advance diet * walking program * DC IVF. * flomax added Review of Systems - Review of Systems ENT: negative: Ear Pain, Ear Discharge, Nose Pain, Nose Discharge, Nose Congestion, Mouth Pain, Mouth Swelling, Throat Pain, Throat Swelling, Other Respiratory: negative: Cough, Dry, Shortness of Breath, Hemoptysis, SOB with Excertion, Pleuritic Pain, Sputum, Wheezing Cardiovascular: negative: chest pain, palpitations, orthopnea, paroxysmal nocturnal dyspnea, edema, light headedness, other Gastrointestinal: negative: Nausea, Vomiting, Abdominal Pain, Diarrhea, Constipation, Melena, Hematochezia, Other Genitourinary: Frequency. negative: Dysuria, Incontinence, Hematuria, Retention , Other Musculoskeletal: negative: Neck Pain, Shoulder Pain, Arm Pain, Back Pain, Hand Pain, Leg Pain, Foot Pain, Other - Medications/Allergies Allergies/Adverse Reactions: Allergies Allergy/AdvReac Type Severity Reaction Status Date / Time No Known Drug Allergies Allergy Verified 06/16/18 12:23 Medications: Current Medications Acetaminophen (Tylenol) 650 mg PO Q4H PRN PRN Reason: Headache/Fever/Mild Pain (1-3) Hydrocodone Bitart/Acetaminophen ([place] 10/325) 1 tab PO Q6H PRN PRN Reason: Moderate Pain (4-6) Last Admin: 06/18/18 08:48 Dose: 1 tab Hydrocodone Bitart/Acetaminophen ([place] 10/325) 2 tab PO Q6H PRN PRN Reason: Severe Pain (7-10) Al Hydroxide/Mg Hydroxide (Maalox) 15 ml PO Q6H PRN PRN Reason: Dyspepsia Albuterol/Ipratropium (Duoneb) 3 ml NEB Q4H PRN PRN Reason: Wheezing Artificial Tears (Tears Naturale) 2 drop EA EYE PRN PRN PRN Reason: Dry Eyes Bisacodyl (Dulcolax) 10 mg PO DAILYPRN PRN PRN Reason: Constipation Bisacodyl (Dulcolax) 10 mg [place] DAILYPRN PRN PRN Reason: Constipation Calcium Carbonate (Tums) 1,000 mg PO Q4H PRN PRN Reason: Dyspepsia Dextrose/Water (Dextrose 50%) 25 gm SLOW IVP PRN PRN PRN Reason: Hypoglycemia Enoxaparin Sodium (Lovenox) 40 mg SC 0900 [facility] Last Admin: 06/18/18 08:19 Dose: 40 mg Famotidine (Pepcid) 20 mg PO Q12HR [facility] Last Admin: 06/18/18 08:22 Dose: 20 mg Famotidine (Pepcid) 20 mg SLOW IVP Q12HR [facility] Last Admin: 06/18/18 08:23 Dose: Not Given Glucagon (Glucagon) 1 mg IM PRN PRN PRN Reason: Hypoglycemia Guaifenesin (Robitussin Sf) 200 mg PO Q4H PRN PRN Reason: Cough Hydralazine HCl (Apresoline) 10 mg SLOW IVP Q4H PRN PRN Reason: SBP > 170 or DBP > 100 Levofloxacin 750 mg/ Device 150 mls @ 100 mls/hr IVPB Q2DAYS [facility] Last Admin: 06/16/18 17:36 Dose: 150 mls Piperacillin Sod/Tazobactam (Sod 3.375 gm/ Sodium Chloride) 100 mls @ 200 mls/ hr IVPB Q6H [facility] Last Admin: 06/18/18 10:09 Dose: 100 mls Insulin Glargine 6 units/ (Miscellaneous Medication) 0.06 mls @ 0 mls/hr SC HS [facility] Last Admin: 06/17/18 21:52 Dose: 0.06 mls Insulin Glargine 6 units/ (Miscellaneous Medication) 0.06 mls @ 0 mls/hr SC QAM [facility] Last Admin: 06/18/18 08:22 Dose: 0.06 mls Sodium Chloride (Normal Saline 0.9%) 1,000 mls @ 75 mls/hr IV .[id number] [facility] Last Admin: 06/18/18 11:28 Dose: Not Given Dextrose/Water (D5w) 1,000 mls @ 0 mls/hr IV .Q0M PRN PRN Reason: Hypoglycemia Insulin Human Lispro (Humalog) 0 units SC .AGGRESSIVE SLIDING PRN PRN Reason: Aggressive Correctional Scale Last Admin: 06/18/18 05:11 Dose: 9 unit Insulin Human Lispro (Humalog) 0 units SC .BEDTIME SLIDING SC PRN PRN Reason: Bedtime Correctional Scale Ketorolac Tromethamine (Toradol) 30 mg IVP Q6HR [facility] Stop: 06/22/18 18:01 Last Admin: 06/18/18 05:07 Dose: 30 mg Loperamide HCl (Imodium) 2 mg PO PRN PRN PRN Reason: Diarrhea/Loose Stools Loratadine (Claritin) 10 mg PO DAILYPRN PRN PRN Reason: Sinus Symptoms Mineral Oil/White Petrolatum (Eucerin Cream) 0 gm TOP BIDPRN PRN PRN Reason: Dry Skin Morphine Sulfate (Morphine) 2 mg SLOW IVP Q2H PRN PRN Reason: Mild Pain (1-3) Morphine Sulfate (Morphine) 4 mg SLOW IVP Q2H PRN PRN Reason: Moderate Pain (4-6) Ondansetron HCl (Zofran Odt) 4 mg PO Q6H PRN PRN Reason: Nausea/Vomiting Ondansetron HCl (Zofran) 4 mg IVP Q6H PRN PRN Reason: Nausea/Vomiting Pantoprazole Sodium (Protonix) 40 mg IVP DAILY [facility] Last Admin: 06/18/18 08:20 Dose: 40 mg Promethazine HCl (Phenergan) 12.5 mg IM Q4H PRN PRN Reason: Nausea/Vomiting Saccharomyces Boulardii (Florastor) 250 mg PO DAILY [facility] Last Admin: 06/18/18 08:20 Dose: 250 mg Senna/Docusate Sodium (Senokot S) 2 tab PO BID PRN PRN Reason: Constipation Sodium Chloride ([place] Nasal [place] 0.65%) 0 ml EA NARE QIDPRN PRN PRN Reason: Nasal Congestion Sodium Chloride (Flush - Normal Saline) 10 ml IVF Q12HR [facility] Last Admin: 06/18/18 08:23 Dose: 10 ml Sodium Chloride (Flush - Normal Saline) 10 ml IVF PRN PRN PRN Reason: Saline Flush Tamsulosin HCl (Flomax) 0.4 mg PO DAILY [facility] Throat Lozenges (Cepastat Lozenges) 1 pedro PO Q2H PRN PRN Reason: Sore Throat Zolpidem Tartrate (Ambien) 5 mg PO HSPRN PRN PRN Reason: Insomnia
--- NOTE | 2018-06-18 12:23 | OP ---
DATE OF PROCEDURE: 06/17/2018 PREOPERATIVE DIAGNOSES: Choledocholithiasis, acute cholecystitis. PROCEDURE PERFORMED: Laparoscopic cholecystectomy. INDICATIONS: This is a 68-year-old male who presented yesterday with cholangitis and choledocholithiasis, who underwent ERCP with stone extraction, still had gallstones. FINDINGS: Thickened gallbladder wall. He did have a large cystic duct. DESCRIPTION OF PROCEDURE: After informed consent was obtained, the patient was taken to the operating room and given general endotracheal anesthesia. He was placed in supine position. Abdomen was prepped and draped in usual fashion. Local anesthesia was infiltrated subcutaneously and deep and a subumbilical incision was performed. Subcu divided sharply. The fascia grasped and two stay sutures of 0 Vicryl placed in each side of midline. Midline incised. Digital palpation revealed no local adhesions. A blunt 12 mm trocar inserted. Pneumoperitoneum was created to a pressure of 15 mmHg. A 0-degree laparoscope was inserted under direct vision. Three 5 mm ports were placed subcostally. Gallbladder was grasped and advanced superiorly. Peritoneum lysed distally to reveal the cystic duct and artery. These were triply ligated and divided. The gallbladder removed from its fossa utilizing electrocautery, removed from the abdomen in an endosac through the umbilical port. Hemostasis assured. Trocars and retractors were removed. The fascia was closed with interrupted 0 Vicryl suture. The skin was closed with interrupted 4-0 Rapide. Dermabond was applied. The patient tolerated the procedure well transferred to Recovery in good condition. Sponge and needle count verified correct x2. Job ID: [id number]
--- NOTE | 2018-06-18 13:50 | PRG ---
DATE OF SERVICE: 06/18/2018 SUBJECTIVE: Mr. Zayas is doing better today. He is on a liquid diet. His incisions sites of his cholecystectomy are less painful. OBJECTIVE: VITAL SIGNS: Temperature is 97.5, pulse 85, blood pressure 122/72. LUNGS: Clear. HEART: Regular without murmurs. ABDOMEN: Soft and nontender. LABORATORY DATA: White count 7.9, hemoglobin 11.1, platelet count 155. Sodium 129, potassium 3.7, chloride 103, bicarb 18, BUN and creatinine of 25 and 1.67. Bilirubin is 1.3, AST and ALT are 65 and 80, alkaline phosphatase 127, lipase 34. Blood cultures growing alpha hemolytic strep and gram-negative rods, Klebsiella species, pansensitive. ASSESSMENT: Ascending cholangitis with Klebsiella bacteremia and possible strep bacteremia. He continues on IV antibiotics try continue this until final sensitivities are back, we now can put him on orally and treat him with oral antibiotics for 7 to 10 more days along with a probiotic. At this time, we can advance diet as tolerated. Job ID: [id number]
--- NOTE | 2018-06-18 17:31 | EKG ---
Test Reason : REPEAT Blood Pressure : / mmHG Vent. Rate : 135 BPM Atrial Rate : 033 BPM P-R Int : 000 ms QRS Dur : 138 ms QT Int : 408 ms P-R-T Axes : 000 -81 052 degrees QTc Int : 612 ms Wide QRS tachycardia Left axis deviation Right bundle branch block Abnormal ECG Confirmed by ANDREW SCHROEDER, DR. Winter ([id number]) on 06/18/2018 5:31:09 PM Referred By: Confirmed By:DR. Moy MORALES MD
[2018-06-19] MEDS: Ketorolac Tromethamine 30 MG/ML VIAL IVP SCH ×2 (01:03→06:07)
[2018-06-19 05:06] LABS: #Eosinphils 0.2 thou/uL (0.0-0.7); #Lymphocytes 0.8 thou/uL (1.20-3.40); #Monocytes 0.6 thou/uL (0.11-0.59); #Neutrophils 6.6 thou/uL (1.40-6.50); %Basophils 0.5 % (0.0-1.0); %Eosinophils 2.2 % (0.0-10.0); %Lymphocytes 9.8 % (21.0-51.0); %Monocytes 7.7 % (0.0-10.0); %Neutrophils 79.8 % (42.0-75.0); Hemoglobin 11.8 g/dL (14.0-18.0); Mean Corpuscular HGB CONC 34.2 g/dL (32.0-36.0); Mean Corpuscular Hemoglobin 31.5 pg (27.0-31.0); Mean Corpuscular Volume 92.1 fL (78.0-98.0); Mean Platelet Volume 7.6 fL (7.4-10.4); Platelet Count 184 thou/uL (130-400); RBC Distribution Width 11.5 % (11.5-14.5); Red Blood Cell (RBC) Count 3.74 mill/uL (4.70-6.10); White Blood Cell (WBC) Count 8.3 thou/uL (4.8-10.8)
[2018-06-19 05:18] LABS: ALT (SGPT) 80 U/L (8-55); AST (SGOT) 57 U/L (5-34); Albumin 3.1 g/dL (3.4-4.8); Alkaline Phosphatase 165 U/L (40-150); Anion Gap 16 mmol/L (10-20); BUN (Urea Nitrogen) 25 mg/dL (8.4-25.7); Bilirubin, Total 1.5 mg/dL (0.2-1.2); Calc. Creatinine Clearance 54 mL/min (70-130); Calcium 8.3 mg/dL (7.8-10.44); Carbon Dioxide 17 mmol/L (23-31); Chloride 101 mmol/L (98-107); Estimated GFR-MDRD 37; Glucose 216 mg/dL (80-115); Potassium 3.7 mmol/L (3.5-5.1); Protein, Total 6.1 g/dL (5.8-8.1); Sodium 130 mmol/L (136-145)
[2018-06-19] MEDS: Piperacillin/Tazobactam 3.375 GM in Sodium Chloride 0.9% 100 ML IVPB SCH (05:20)
[2018-06-19 05:22] LABS: Troponin I 0.029 ng/mL (< 0.028)
[2018-06-19] MEDS: HumaLOG 300 UNITS/3 ML VIAL SC PRN ×4 (05:35→21:38)
[2018-06-19] MEDS ORDERED: Sodium Chloride 0.9% 1,000 ML IV SCH (07:45)
[2018-06-19] MEDS: Famotidine 20 MG TAB PO SCH ×2 (08:48→21:42)
[2018-06-19] MEDS: Enoxaparin Sodium 40 MG/0.4 ML SYRINGE SC SCH (08:48)
[2018-06-19] MEDS: Aspirin Chewable 81 MG TAB PO SCH (08:48)
[2018-06-19] MEDS: Saccharomyces boulardii 250 MG CAP PO SCH (08:48)
[2018-06-19] MEDS: Pantoprazole 40 MG VIAL IVP SCH (08:49)
[2018-06-19] MEDS: Tamsulosin HCl 0.4 MG CAP PO SCH (08:56)
--- NOTE | 2018-06-19 09:26 | EKG ---
Test Reason : STAT Blood Pressure : / mmHG Vent. Rate : 078 BPM Atrial Rate : 078 BPM P-R Int : 188 ms QRS Dur : 154 ms QT Int : 414 ms P-R-T Axes : 033 -58 -05 degrees QTc Int : 471 ms Normal sinus rhythm Left axis deviation Right bundle branch block Abnormal ECG When compared with ECG of 16-JUN-2018 09:27, Sinus rhythm has replaced Wide QRS tachycardia Vent. rate has decreased BY [address] Ollie BAUM ([id number]) on 06/19/2018 9:26:26 AM Referred By: Confirmed By:DR. Ollie BAUM
[2018-06-19] MEDS: Insulin Glargine 6 UNITS in Pre-Filled Syringe 1 EACH SC SCH ×2 (10:49→21:42)
--- NOTE | 2018-06-19 11:24 | PDOC.PN ---
- Subjective Encounter Start Date: 06/19/18 Encounter Start Time: 09:00 last night pt was not feeling good, he has gas pain, has no BM - Objective Resuscitation Status - Order Detail: 06/16/18 10:55 Resuscitation Status Routine Resuscitation Status: FULL: Full Resuscitation MAR Reviewed: Yes Vital Signs & Weight: Vital Signs (12 hours) Temp Pulse Resp BP Pulse Ox 06/19/18 09:19 96 06/19/18 07:52 98.0 F 79 14 167/83 H 96 06/19/18 04:00 97.7 F 82 18 146/78 H 96 06/18/18 23:50 98.6 F 90 18 142/80 H 94 L Weight Weight 217 lb 4.8 oz I&O: 06/18/18 06/19/18 06/20/18 06:59 06:59 06:59 Intake Total 1700 Output Total 200 850 Balance 1500 -850 Result Diagrams: 06/19/18 04:39 06/19/18 04:39 Additional Labs: Accuchecks 06/19/18 06/19/18 06/19/18 11:04 05:21 04:16 POC Glucose 195 H 214 H 205 H 06/18/18 06/18/18 06/18/18 21:35 15:59 11:27 POC Glucose 214 H 176 H 296 H Phys Exam - Physical Examination Constitutional: NAD HEENT: PERRLA, moist MMs, sclera anicteric Neck: no JVD, supple Respiratory: no wheezing, no rales, no rhonchi Cardiovascular: RRR, no significant murmur, no rub Gastrointestinal: soft, non-tender, no distention, positive bowel sounds Musculoskeletal: no edema, pulses present Neurological: non-focal, normal sensation, moves all 4 limbs Psychiatric: normal affect, A&O x 3 Skin: no rash, normal turgor Dx/Plan (1) Cholelithiasis with acute cholangitis Code(s): K80.20 - CALCULUS OF GALLBLADDER W/O CHOLECYSTITIS W/O OBSTRUCTION; K83.09 - OTHER CHOLANGITIS Status: Acute Comment: s/p ERCP and s/p lap mj (2) Abnormal LFTs Code(s): R94.5 - ABNORMAL RESULTS OF LIVER FUNCTION STUDIES Status: Acute (3) Acute kidney failure Status: Acute (4) Bacteremia Code(s): R78.81 - BACTEREMIA Status: Resolved (5) Hyponatremia Code(s): E87.1 - HYPO-OSMOLALITY AND HYPONATREMIA Status: Acute (6) Sepsis with acute organ dysfunction Code(s): A41.9 - SEPSIS, UNSPECIFIED ORGANISM; R65.20 - SEVERE SEPSIS WITHOUT SEPTIC SHOCK Status: Acute (7) Diabetes type 2, controlled Code(s): E11.9 - TYPE 2 DIABETES MELLITUS WITHOUT COMPLICATIONS Status: Chronic (8) Hypertension Code(s): I10 - ESSENTIAL (PRIMARY) HYPERTENSION Status: Chronic (9) BPH with obstruction/lower urinary tract symptoms Code(s): N40.1 - BENIGN PROSTATIC HYPERPLASIA WITH LOWER URINARY TRACT SYMP; N13.8 - OTHER OBSTRUCTIVE AND REFLUX UROPATHY Status: Acute - Plan cont current plan of care, continue antibiotics * DC zosyn * continue levaquin * repeat labs tomorrow * give lasix one time * creatinine is high today, monitor * repeat cardiac enzyme is negative * diet as tolerated. * dc ivf as he has penile edema Review of Systems - Review of Systems ENT: negative: Ear Pain, Ear Discharge, Nose Pain, Nose Discharge, Nose Congestion, Mouth Pain, Mouth Swelling, Throat Pain, Throat Swelling, Other Respiratory: negative: Cough, Dry, Shortness of Breath, Hemoptysis, SOB with Excertion, Pleuritic Pain, Sputum, Wheezing Cardiovascular: negative: chest pain, palpitations, orthopnea, paroxysmal nocturnal dyspnea, edema, light headedness, other Gastrointestinal: negative: Nausea, Vomiting, Abdominal Pain, Diarrhea, Constipation, Melena, Hematochezia, Other Genitourinary: negative: Dysuria, Frequency, Incontinence, Hematuria, Retention , Other Musculoskeletal: negative: Neck Pain, Shoulder Pain, Arm Pain, Back Pain, Hand Pain, Leg Pain, Foot Pain, Other Skin: negative: Rash, Lesions, [place], Bruising, Other - Medications/Allergies Allergies/Adverse Reactions: Allergies Allergy/AdvReac Type Severity Reaction Status Date / Time No Known Drug Allergies Allergy Verified 06/16/18 12:23 Medications: Current Medications Acetaminophen (Tylenol) 650 mg PO Q4H PRN PRN Reason: Headache/Fever/Mild Pain (1-3) Hydrocodone Bitart/Acetaminophen ([place] 10/325) 1 tab PO Q6H PRN PRN Reason: Moderate Pain (4-6) Last Admin: 06/18/18 16:28 Dose: 1 tab Hydrocodone Bitart/Acetaminophen ([place] 10/325) 2 tab PO Q6H PRN PRN Reason: Severe Pain (7-10) Al Hydroxide/Mg Hydroxide (Maalox) 15 ml PO Q6H PRN PRN Reason: Dyspepsia Albuterol/Ipratropium (Duoneb) 3 ml NEB Q4H PRN PRN Reason: Wheezing Artificial Tears (Tears Naturale) 2 drop EA EYE PRN PRN PRN Reason: Dry Eyes Aspirin (Aspirin Chewable) 81 mg PO DAILY [facility] Last Admin: 06/19/18 08:48 Dose: 81 mg Bisacodyl (Dulcolax) 10 mg PO DAILYPRN PRN PRN Reason: Constipation Bisacodyl (Dulcolax) 10 mg [place] DAILYPRN PRN PRN Reason: Constipation Calcium Carbonate (Tums) 1,000 mg PO Q4H PRN PRN Reason: Dyspepsia Dextrose/Water (Dextrose 50%) 25 gm SLOW IVP PRN PRN PRN Reason: Hypoglycemia Enoxaparin Sodium (Lovenox) 40 mg SC 0900 [facility] Last Admin: 06/19/18 08:48 Dose: 40 mg Famotidine (Pepcid) 20 mg PO Q12HR [facility] Last Admin: 06/19/18 08:48 Dose: 20 mg Glucagon (Glucagon) 1 mg IM PRN PRN PRN Reason: Hypoglycemia Guaifenesin (Robitussin Sf) 200 mg PO Q4H PRN PRN Reason: Cough Hydralazine HCl (Apresoline) 10 mg SLOW IVP Q4H PRN PRN Reason: SBP > 170 or DBP > 100 Levofloxacin 750 mg/ Device 150 mls @ 100 mls/hr IVPB Q2DAYS [facility] Last Admin: 06/18/18 14:55 Dose: 150 mls Insulin Glargine 6 units/ (Miscellaneous Medication) 0.06 mls @ 0 mls/hr SC HS [facility] Last Admin: 06/18/18 21:57 Dose: 0.06 mls Insulin Glargine 6 units/ (Miscellaneous Medication) 0.06 mls @ 0 mls/hr SC QAM [facility] Last Admin: 06/19/18 10:49 Dose: 0.06 mls Dextrose/Water (D5w) 1,000 mls @ 0 mls/hr IV .Q0M PRN PRN Reason: Hypoglycemia Sodium Chloride (Normal Saline 0.9%) 1,000 mls @ 120 mls/hr IV .Q8H20M [facility] Insulin Human Lispro (Humalog) 0 units SC .AGGRESSIVE SLIDING PRN PRN Reason: Aggressive Correctional Scale Last Admin: 06/19/18 05:35 Dose: 6 unit Insulin Human Lispro (Humalog) 0 units SC .BEDTIME SLIDING SC PRN PRN Reason: Bedtime Correctional Scale Last Admin: 06/18/18 22:08 Dose: 2 unit Loperamide HCl (Imodium) 2 mg PO PRN PRN PRN Reason: Diarrhea/Loose Stools Loratadine (Claritin) 10 mg PO DAILYPRN PRN PRN Reason: Sinus Symptoms Mineral Oil/White Petrolatum (Eucerin Cream) 0 gm TOP BIDPRN PRN PRN Reason: Dry Skin Morphine Sulfate (Morphine) 2 mg SLOW IVP Q2H PRN PRN Reason: Mild Pain (1-3) Morphine Sulfate (Morphine) 4 mg SLOW IVP Q2H PRN PRN Reason: Moderate Pain (4-6) Ondansetron HCl (Zofran Odt) 4 mg PO Q6H PRN PRN Reason: Nausea/Vomiting Last Admin: 06/18/18 20:42 Dose: 4 mg Ondansetron HCl (Zofran) 4 mg IVP Q6H PRN PRN Reason: Nausea/Vomiting Last Admin: 06/19/18 04:27 Dose: 4 mg Pantoprazole Sodium (Protonix) 40 mg IVP DAILY [facility] Last Admin: 06/19/18 08:49 Dose: 40 mg Promethazine HCl (Phenergan) 12.5 mg IM Q4H PRN PRN Reason: Nausea/Vomiting Saccharomyces Boulardii (Florastor) 250 mg PO DAILY [facility] Last Admin: 06/19/18 08:48 Dose: 250 mg Senna/Docusate Sodium (Senokot S) 2 tab PO BID PRN PRN Reason: Constipation Sodium Chloride ([place] Nasal [place] 0.65%) 0 ml EA NARE QIDPRN PRN PRN Reason: Nasal Congestion Sodium Chloride (Flush - Normal Saline) 10 ml IVF Q12HR [facility] Last Admin: 06/19/18 08:49 Dose: 10 ml Sodium Chloride (Flush - Normal Saline) 10 ml IVF PRN PRN PRN Reason: Saline Flush Last Admin: 06/19/18 04:28 Dose: 10 ml Tamsulosin HCl (Flomax) 0.4 mg PO DAILY [facility] Last Admin: 06/19/18 08:56 Dose: 0.4 mg Throat Lozenges (Cepastat Lozenges) 1 pedro PO Q2H PRN PRN Reason: Sore Throat Zolpidem Tartrate (Ambien) 5 mg PO HSPRN PRN PRN Reason: Insomnia
[2018-06-19] MEDS ORDERED: Furosemide 20 MG/2 ML VIAL SLOW IVP SCH (11:30)
[2018-06-19] MEDS: Acetaminophen 325 MG TAB PO PRN (15:37)
[2018-06-20] MEDS: Acetaminophen 325 MG TAB PO PRN (00:05)
--- NOTE | 2018-06-20 03:24 | PRG ---
DATE OF SERVICE: SUBJECTIVE: Mr. Zayas actually had a little rougher last night with some abdominal pain. He felt sweaty quite a bit and diaphoretic. He had no fever. OBJECTIVE: VITAL SIGNS: T-max 98. Presently, he has done well. He took a shower. He has eaten some. Pulse is 85, blood pressure 153/89. LUNGS: Clear. HEART: Regular rate and rhythm. ABDOMEN: Slightly protuberant, but soft. He is tender and has some voluntary guarding. LABORATORY DATA: White count today is 8.3, hemoglobin 11.8, platelet count is 184. Troponins taken last night and this morning were negative. ASSESSMENT: Ascending cholangitis with Klebsiella and strep, but on the blood he is markedly better. RECOMMENDATIONS: We are going to transfer to oral medications. Hopefully, the next day or so, he will be able to go home. If he has worsening abdominal pain, we got to consider bile leak, but at this time with normal white count, pulse, and benign abdomen, I think we can observe him and advance his diet. Job ID: [id number]
[2018-06-20 04:21] VITALS: TEMP 97.7
[2018-06-20 06:05] LABS: #Eosinphils 0.1 thou/uL (0.0-0.7); #Lymphocytes 0.9 thou/uL (1.20-3.40); #Monocytes 0.5 thou/uL (0.11-0.59); #Neutrophils 4.9 thou/uL (1.40-6.50); %Basophils 0.5 % (0.0-1.0); %Lymphocytes 14.5 % (21.0-51.0); %Monocytes 7.8 % (0.0-10.0); %Neutrophils 75.2 % (42.0-75.0); Hemoglobin 11.6 g/dL (14.0-18.0); Mean Corpuscular HGB CONC 34.2 g/dL (32.0-36.0); Mean Corpuscular Hemoglobin 31.9 pg (27.0-31.0); Mean Corpuscular Volume 93.4 fL (78.0-98.0); Mean Platelet Volume 7.1 fL (7.4-10.4); Platelet Count 210 thou/uL (130-400); RBC Distribution Width 11.5 % (11.5-14.5); Red Blood Cell (RBC) Count 3.63 mill/uL (4.70-6.10); White Blood Cell (WBC) Count 6.5 thou/uL (4.8-10.8)
[2018-06-20 06:26] LABS: Anion Gap 14 mmol/L (10-20); BUN (Urea Nitrogen) 15 mg/dL (8.4-25.7); Calc. Creatinine Clearance 71 mL/min (70-130); Calcium 8.5 mg/dL (7.8-10.44); Carbon Dioxide 18 mmol/L (23-31); Chloride 105 mmol/L (98-107); Estimated GFR-MDRD 51; Glucose 190 mg/dL (80-115); Potassium 3.6 mmol/L (3.5-5.1); Sodium 133 mmol/L (136-145)
[2018-06-20] MEDS: HumaLOG 300 UNITS/3 ML VIAL SC PRN (06:27)
--- NOTE | 2018-06-20 07:55 | DIS ---
DATE OF ADMISSION: 06/16/2018 DATE OF DISCHARGE: DISCHARGE DIAGNOSES: Cholangitis, choledocholithiasis, cholecystitis. PROCEDURES DURING ADMISSION: ERCP with sphincterotomy and stone extraction, laparoscopic cholecystectomy. HOSPITAL COURSE: The patient was admitted, given IV fluids, IV antibiotics. GI was consulted. He was taken to the endoscopy suite, where he underwent ERCP and stone extraction. He initially was septic and he responded very quickly to that. The following day, he was taken to the operating room where he underwent laparoscopic cholecystectomy. Postoperatively, he initially had some nausea, but he is now tolerating full liquids well. He reports having difficulty sleeping, feels a little bit tired. His vital signs are good. His white count is normal. His LFTs are coming back to normal. ASSESSMENT: Doing well. PLAN: Discharge home. FOLLOWUP: Follow up with me in 2 weeks. Job ID: [id number]
[2018-06-20 08:28] VITALS: BP 169/91
[2018-06-20] MEDS: Enoxaparin Sodium 40 MG/0.4 ML SYRINGE SC SCH (08:41)
[2018-06-20] MEDS: Insulin Glargine 6 UNITS in Pre-Filled Syringe 1 EACH SC SCH (08:42)
[2018-06-20] MEDS: Pantoprazole 40 MG VIAL IVP SCH (08:43)
--- NOTE | 2018-06-20 09:41 | PRG ---
DATE OF SERVICE: 06/20/2018 SUBJECTIVE: Though the patient was discharged yesterday, his discharge was held by the medical service for medical reasons. He feels fine. He is hungry. He is tolerating full liquids well. He is passing gas. He would like some solid food. He would like to go home and sleep in his own bed. His pain is minimal. OBJECTIVE: VITAL SIGNS: Temperature 97.7, pulse 85, blood pressure 169/91. GENERAL: He looks fine. No jaundice. LUNGS: Clear. HEART: Regular rate and rhythm. ABDOMEN: Soft, nondistended. He does have some mild ecchymosis around the incisions. LABORATORY DATA: His white count is 6.5, H and H are 11 and 33, platelet count is fine. Electrolytes; sodium 133, CO2 18, creatinine 1.4, glucose 190. ASSESSMENT: History of cholangitis with diabetes. PLAN: Discharge per Medical Service. Job ID: [id number]
[2018-06-20] MEDS: Aspirin Chewable 81 MG TAB PO SCH (10:21)
[2018-06-20] MEDS: Tamsulosin HCl 0.4 MG CAP PO SCH (10:22)
[2018-06-20] MEDS: Saccharomyces boulardii 250 MG CAP PO SCH (10:22)
[2018-06-20] MEDS: Famotidine 20 MG TAB PO SCH (10:22)
--- NOTE | 2018-06-20 10:56 | PDOC.PN ---
- Subjective Encounter Start Date: 06/20/18 Encounter Start Time: 09:20 Patient seen and examined. No new complaints. No overnight events - Objective Resuscitation Status - Order Detail: 06/16/18 10:55 Resuscitation Status Routine Resuscitation Status: FULL: Full Resuscitation MAR Reviewed: Yes Vital Signs & Weight: Vital Signs (12 hours) Temp Pulse Resp BP Pulse Ox 06/20/18 09:32 95 06/20/18 07:20 97.7 F 85 18 169/91 H 95 06/20/18 04:20 97.7 F 82 18 159/83 H 95 06/20/18 00:15 98.0 F 81 18 132/67 96 Weight Weight 217 lb 4.8 oz I&O: 06/19/18 06/20/18 06/21/18 06:59 06:59 06:59 Output Total 850 1300 Balance -850 -1300 Result Diagrams: 06/20/18 05:48 06/20/18 05:48 Additional Labs: Accuchecks 06/20/18 06/19/18 06/19/18 05:37 20:48 15:39 POC Glucose 185 H 226 H 200 H 06/19/18 11:04 POC Glucose 195 H Phys Exam - Physical Examination Constitutional: NAD HEENT: PERRLA, moist MMs, sclera anicteric Neck: no JVD, supple Respiratory: no wheezing, no rales, no rhonchi Cardiovascular: RRR, no significant murmur, no rub Gastrointestinal: soft, non-tender, no distention, positive bowel sounds Musculoskeletal: no edema, pulses present Neurological: non-focal, normal sensation, moves all 4 limbs Lymphatic: no nodes Psychiatric: normal affect, A&O x 3 Skin: no rash, normal turgor Dx/Plan (1) Cholelithiasis with acute cholangitis Code(s): K80.20 - CALCULUS OF GALLBLADDER W/O CHOLECYSTITIS W/O OBSTRUCTION; K83.09 - OTHER CHOLANGITIS Status: Acute Comment: s/p ERCP and s/p lap mj (2) Abnormal LFTs Code(s): R94.5 - ABNORMAL RESULTS OF LIVER FUNCTION STUDIES Status: Acute (3) Acute kidney failure Status: Acute (4) Bacteremia Code(s): R78.81 - BACTEREMIA Status: Resolved (5) Hyponatremia Code(s): E87.1 - HYPO-OSMOLALITY AND HYPONATREMIA Status: Acute (6) Sepsis with acute organ dysfunction Code(s): A41.9 - SEPSIS, UNSPECIFIED ORGANISM; R65.20 - SEVERE SEPSIS WITHOUT SEPTIC SHOCK Status: Acute (7) Diabetes type 2, controlled Code(s): E11.9 - TYPE 2 DIABETES MELLITUS WITHOUT COMPLICATIONS Status: Chronic (8) Hypertension Code(s): I10 - ESSENTIAL (PRIMARY) HYPERTENSION Status: Chronic (9) BPH with obstruction/lower urinary tract symptoms Code(s): N40.1 - BENIGN PROSTATIC HYPERPLASIA WITH LOWER URINARY TRACT SYMP; N13.8 - OTHER OBSTRUCTIVE AND REFLUX UROPATHY Status: Acute - Plan cont current plan of care, continue antibiotics * symptomatic treatment * discussed with daughter * see discharge kayy. Review of Systems - Review of Systems ENT: negative: Ear Pain, Ear Discharge, Nose Pain, Nose Discharge, Nose Congestion, Mouth Pain, Mouth Swelling, Throat Pain, Throat Swelling, Other Respiratory: negative: Cough, Dry, Shortness of Breath, Hemoptysis, SOB with Excertion, Pleuritic Pain, Sputum, Wheezing Cardiovascular: negative: chest pain, palpitations, orthopnea, paroxysmal nocturnal dyspnea, edema, light headedness, other Gastrointestinal: negative: Nausea, Vomiting, Abdominal Pain, Diarrhea, Constipation, Melena, Hematochezia, Other Genitourinary: negative: Dysuria, Frequency, Incontinence, Hematuria, Retention , Other Musculoskeletal: negative: Neck Pain, Shoulder Pain, Arm Pain, Back Pain, Hand Pain, Leg Pain, Foot Pain, Other - Medications/Allergies Allergies/Adverse Reactions: Allergies Allergy/AdvReac Type Severity Reaction Status Date / Time No Known Drug Allergies Allergy Verified 06/16/18 12:23 Medications: Current Medications Acetaminophen (Tylenol) 650 mg PO Q4H PRN PRN Reason: Headache/Fever/Mild Pain (1-3) Last Admin: 06/20/18 00:05 Dose: 650 mg Hydrocodone Bitart/Acetaminophen ([place] 10/325) 1 tab PO Q6H PRN PRN Reason: Moderate Pain (4-6) Last Admin: 06/18/18 16:28 Dose: 1 tab Hydrocodone Bitart/Acetaminophen ([place] 10/325) 2 tab PO Q6H PRN PRN Reason: Severe Pain (7-10) Al Hydroxide/Mg Hydroxide (Maalox) 15 ml PO Q6H PRN PRN Reason: Dyspepsia Albuterol/Ipratropium (Duoneb) 3 ml NEB Q4H PRN PRN Reason: Wheezing Artificial Tears (Tears Naturale) 2 drop EA EYE PRN PRN PRN Reason: Dry Eyes Aspirin (Aspirin Chewable) 81 mg PO DAILY [facility] Last Admin: 06/20/18 10:21 Dose: 81 mg Bisacodyl (Dulcolax) 10 mg PO DAILYPRN PRN PRN Reason: Constipation Bisacodyl (Dulcolax) [address] DAILYPRN PRN PRN Reason: Constipation Calcium Carbonate (Tums) 1,000 mg PO Q4H PRN PRN Reason: Dyspepsia Dextrose/Water (Dextrose 50%) 25 gm SLOW IVP PRN PRN PRN Reason: Hypoglycemia Enoxaparin Sodium (Lovenox) 40 mg SC 0900 [facility] Last Admin: 06/20/18 08:41 Dose: 40 mg Famotidine (Pepcid) 20 mg PO Q12HR [facility] Last Admin: 06/20/18 10:22 Dose: 20 mg Glucagon (Glucagon) 1 mg IM PRN PRN PRN Reason: Hypoglycemia Guaifenesin (Robitussin Sf) 200 mg PO Q4H PRN PRN Reason: Cough Hydralazine HCl (Apresoline) 10 mg SLOW IVP Q4H PRN PRN Reason: SBP > 170 or DBP > 100 Levofloxacin 750 mg/ Device 150 mls @ 100 mls/hr IVPB Q2DAYS [facility] Last Admin: 06/18/18 14:55 Dose: 150 mls Insulin Glargine 6 units/ (Miscellaneous Medication) 0.06 mls @ 0 mls/hr SC HS [facility] Last Admin: 06/19/18 21:42 Dose: 0.06 mls Insulin Glargine 6 units/ (Miscellaneous Medication) 0.06 mls @ 0 mls/hr SC QAM [facility] Last Admin: 06/20/18 08:42 Dose: 0.06 mls Dextrose/Water (D5w) 1,000 mls @ 0 mls/hr IV .Q0M PRN PRN Reason: Hypoglycemia Insulin Human Lispro (Humalog) 0 units SC .AGGRESSIVE SLIDING PRN PRN Reason: Aggressive Correctional Scale Last Admin: 06/20/18 06:27 Dose: 3 unit Insulin Human Lispro (Humalog) 0 units SC .BEDTIME SLIDING SC PRN PRN Reason: Bedtime Correctional Scale Last Admin: 06/19/18 21:38 Dose: 2 unit Loperamide HCl (Imodium) 2 mg PO PRN PRN PRN Reason: Diarrhea/Loose Stools Loratadine (Claritin) 10 mg PO DAILYPRN PRN PRN Reason: Sinus Symptoms Mineral Oil/White Petrolatum (Eucerin Cream) 0 gm TOP BIDPRN PRN PRN Reason: Dry Skin Morphine Sulfate (Morphine) 2 mg SLOW IVP Q2H PRN PRN Reason: Mild Pain (1-3) Morphine Sulfate (Morphine) 4 mg SLOW IVP Q2H PRN PRN Reason: Moderate Pain (4-6) Ondansetron HCl (Zofran Odt) 4 mg PO Q6H PRN PRN Reason: Nausea/Vomiting Last Admin: 06/18/18 20:42 Dose: 4 mg Ondansetron HCl (Zofran) 4 mg IVP Q6H PRN PRN Reason: Nausea/Vomiting Last Admin: 06/19/18 04:27 Dose: 4 mg Pantoprazole Sodium (Protonix) 40 mg IVP DAILY [facility] Last Admin: 06/20/18 08:43 Dose: 40 mg Promethazine HCl (Phenergan) 12.5 mg IM Q4H PRN PRN Reason: Nausea/Vomiting Saccharomyces Boulardii (Florastor) 250 mg PO DAILY [facility] Last Admin: 06/20/18 10:22 Dose: 250 mg Senna/Docusate Sodium (Senokot S) 2 tab PO BID PRN PRN Reason: Constipation Sodium Chloride ([place] Nasal [place] 0.65%) 0 ml EA NARE QIDPRN PRN PRN Reason: Nasal Congestion Sodium Chloride (Flush - Normal Saline) 10 ml IVF Q12HR [facility] Last Admin: 06/20/18 08:42 Dose: 10 ml Sodium Chloride (Flush - Normal Saline) 10 ml IVF PRN PRN PRN Reason: Saline Flush Last Admin: 06/19/18 04:28 Dose: 10 ml Tamsulosin HCl (Flomax) 0.4 mg PO DAILY [facility] Last Admin: 06/20/18 10:22 Dose: 0.4 mg Throat Lozenges (Cepastat Lozenges) 1 pedro PO Q2H PRN PRN Reason: Sore Throat Zolpidem Tartrate (Ambien) 5 mg PO HSPRN PRN PRN Reason: Insomnia
--- NOTE | 2018-06-20 12:11 | DIS ---
DATE OF ADMISSION: 06/16/2018 DATE OF DISCHARGE: 06/20/2018 Please see discharge summary dictated by Dr. Encarnacion on June 19, 2018. The patient was admitted for cholangitis as well as cholelithiasis with acute cholecystitis and he had ERCP with sphincterotomy and stone was removed from CBD. The patient also underwent laparoscopic cholecystectomy. The patient's hospital course was smooth. He had slightly elevated creatinine and that is why we holded his discharge and today his creatinine has improvement. During this admission, we decided to start Lantus insulin 10 units subcu b.i.d. on discharge and we reduced metformin to 500 mg p.o. b.i.d. While in hospital, we noted that he was having obstructive urinary tract infection symptoms, which seems like BPH and that is why empirically we started Flomax. On discharge, we also prescribed Levaquin 500 mg p.o. daily for another 10 days for his bacteremia secondary to Klebsiella and Streptococcus. Repeat blood culture was negative. All new medication prescription sent to his pharmacy. Dietary instruction given. Healthy lifestyle measure discussed with the patient and he was instructed to follow up with Dr. Encarnacion as well as primary care physician for diabetes management. Otherwise, the patient is medically stable for discharge today. Job ID: [id number]
--- NOTE | 2018-06-22 08:55 | PQF ---
[employer] DimpleFOEDSON SOLIMAN, CHARO CORTEZ MD [id number] CLINICAL DOCUMENTATION CLARIFICATION FORM: POST DISCHARGE Addendum to original discharge summary date: ____ Late entry note date: __ Please exercise your independent, professional judgment in responding to the clarification form. Clinical indicators are provided on the bottom of this form for your review Please check appropriate box(s): Conflicting documentation was noted in the Medical Record, please clarify if patient is being treated/monitored for: [ x ] SEVERE SEPSIS WITHOUT SEPTIC SHOCK [ x ] BACTEREMIA [ ] Other diagnosis [ ] Unable to determine In addition, please specify: Present on Admission (POA): [x ] Yes [ ] No [ ] Unable to determine For continuity of documentation, please document condition throughout progress notes and discharge summary. Thank You. CLINICAL INDICATORS - SIGNS / SYMPTOMS/ LABS SEVERE SEPSIS WITH ACUTE ORGAN DYSFUNCTION- H&P, PN 2/3, 2/4, 2/5, 2/6 BACTEREMIA- PN 2/3, 2/4, 2/5, 2/6 MAKENNA- PN 2/3, 2/4, 2/5, 2/6 KLEBISELLA BACTEREMIA- PN 2/4, D/S 2/6 RISK FACTORS CHOLEDOCHLITHIASIS WITH ACUTE CHOLECYSTITIS- 2./3 OP REPORT, ALL PROGRESS NOTES , ED TREATMENT BROAD SPECTRUM ANTIBIOTIC THERAPY ON ZOSYN- H&P IV FLUIDS- H&P (This form is maintained as a part of the permanent medical record) 2014 [email or web address]. All Rights Reserved [email or web address] [phone] [email or web address]
== END 2018-06-20 13:30 | disposition home or self-care (01) | DRG 854 ==
LOC: ERS 05:54 → SDC 09:55 → 2NO 11:00 → SURG A 06-17 12:55
PROVIDERS: ADMIT Surgery; ATTEND Surgery
PROC: 0F7C8ZZ Dilation of Ampulla of Vater, Via Natural or Artificial Opening Endoscopic (ICD-10-PCS; 2018-06-16)
PROC: 0FCC8ZZ Extirpation of Matter from Ampulla of Vater, Via Natural or Artificial Opening Endoscopic (ICD-10-PCS; 2018-06-16)
PROC: 0FT44ZZ Resection of Gallbladder, Percutaneous Endoscopic Approach (ICD-10-PCS; principal; 2018-06-17)
DX: A41.9 Sepsis, unspecified organism (principal); N17.9 Acute kidney failure, unspecified; E87.2 Acidosis; E87.1 Hypo-osmolality and hyponatremia; K80.42 Calculus of bile duct with acute cholecystitis without obstruction; N13.8 Other obstructive and reflux uropathy; R65.20 Severe sepsis without septic shock; I10 Essential (primary) hypertension; E66.9 Obesity, unspecified; Z68.26 Body mass index [BMI] 26.0-26.9, adult; E11.65 Type 2 diabetes mellitus with hyperglycemia; N40.1 Benign prostatic hyperplasia with lower urinary tract symptoms; R94.5 Abnormal results of liver function studies; Z79.84 Long term (current) use of oral hypoglycemic drugs
CPT/HCPCS: 36415; 36416; 71045; 74177; 74330; 76705; 80048; 80053; 80061; 81003; 83036; 83605; 83690; 83880; 84443; 84484; 85025; 85610; 85730; 87040; 87077; 87149; 87186; 87804; 88304; 93005; 93010; 96365; 96374; C9113; J0131; J0670; J1650; J1815; J1825; J1885; J1940; J1956; J2001; J2405; J2543; J2704; J3010; J7050; Q0162; Q9961; Q9966; S0028